=== PATIENT | female | born 1950 | race Caucasian/White ===

== ENCOUNTER 2018-09-20 15:46 | Emergency (ER) | payer MEDICARE, MEDICAID ==
[~2018-09-20] VITALS: Ht 157.5 cm; Wt 86.2 kg
[2018-09-20 16:31] VITALS: BP 128/77
[2018-09-25] MEDS ORDERED: GABA300C10 PO (05:24)
[2018-09-25] MEDS ORDERED: PANT40TA2 PO (05:24)
[2018-09-25] MEDS ORDERED: HYDR-4683 PO (05:24)
[2018-09-25] MEDS ORDERED: LEVO25TA49 PO (20:12)
== END 2018-09-20 16:55 | disposition home or self-care (01) ==
LOC: ER 15:54
DX: L03.211 Cellulitis of face (principal); K21.9 Gastro-esophageal reflux disease without esophagitis; R51 Headache; F17.210 Nicotine dependence, cigarettes, uncomplicated; Z88.1 Allergy status to other antibiotic agents

== ENCOUNTER 2018-11-22 13:45 | Emergency (ER) | payer MEDICARE, OTHER ==
[~2018-11-22] VITALS: Ht 157.5 cm; Wt 88.5 kg
[~2018-11-22 13:45] MED LIST: GABA300C10 PO; HYDR-4833 PO; LEVO25TA49 PO; PANT40TA2 PO
[2018-11-22 13:51] VITALS: BP 135/72
== END 2018-11-22 14:58 | disposition home or self-care (01) ==
LOC: ER 13:46
DX: L73.9 Follicular disorder, unspecified (principal); F17.210 Nicotine dependence, cigarettes, uncomplicated; Z88.8 Allergy status to other drugs, medicaments and biological substances; Z79.899 Other long term (current) drug therapy